=== PATIENT | male | born 2000 | race Caucasian/White ===

== ENCOUNTER 2023-06-01 16:17 | Emergency (ER) | payer OTHER, SELFPAY ==
[2023-06-01 16:40] VITALS: BP 147/89; PULSE 73; RESP 18; TEMP 36.8; O2SAT 99; BMI 36.3
--- NOTE | 2023-06-01 17:13 | EXP.UTC ---
Discharge Plan Disposition Patient Disposition: Home, Self-Care Condition: Good Prescriptions Prescriptions: New fluticasone propionate [Flonase Allergy Relief] 50 mcg/actuation spray,suspension 1 - 2 spray intranasal DAILY Qty: 16 0RF Rx Instructions: administer into each nostril amoxicillin 875 mg tablet 875 mg PO BID Qty: 20 0RF Referrals Follow up/Referrals: Provider,Referral, MD [Primary Care Provider] - See instructions Activity Restrictions/Add. Instructions Additional Instructions/Restrictions: Take medication as prescribed Use flonase as prescribed to help with drainage Follow up with your Family Doctor if no improvement or any worsening of symptoms Return if needed Clinical Impressions Clinical Impression: Otitis media Qualifiers: Otitis media type: unspecified Laterality: bilateral Qualified Code(s): H66.93 - Otitis media, unspecified, bilateral Instructions Patient Instructions: Middle Ear Infection Discharge ED Provider: Melony Aparicio [facility] [place] General Stated complaint: ear pain Mode of Arrival: Ambulatory Source of Information: Patient Limitations: No Limitations Time Seen by Provider: 06/01/23 17:13 Description of Symptoms (Recalled from Triage Doc. by RN): PATIENT C/O RIGHT EAR PAIN X 2 DAYS HEENT Symptoms (Recalled from RN notes): Yes Resp Symptoms (Recalled from RN notes): No Skin Symptoms (Recalled from RN notes): No MS Symptoms (Recalled from RN notes): No Functional Status (Recalled from RN notes): WNL History of Present Illness Provider Complaint: Patient states that he has been having pain in his right ear with feeling of fullness and echoing States that today it was hurting worse so he came in to get checked Related Data Previous Rx's Medication Instructions Recorded amoxicillin 875 mg tablet 875 mg PO BID #20 tabs 06/01/23 fluticasone propionate 50 1 - 2 spray intranasal DAILY #16 06/01/23 mcg/actuation nasal grams spray,suspension (Flonase Allergy Relief) Allergies Allergy/AdvReac Type Severity Reaction Status Date / Time No Known Allergies Allergy Verified 06/01/23 16:53 Worker's Comp Is this a Worker's Comp case?: No [facility] Disclaimer: The information contained in this section may have been updated after the patient was seen, as this information can be updated by other users. Social History Smoking Status: Never smoker alcohol intake: never current occupational status: employed Travel in the last 8 weeks: None ROS Obtained: Yes All systems reviewed & no additional complaints except as documented and Yes Systems reviewed as appropriate & no additional complaints except as documented Constitutional Constitutional: Reports system reviewed and no additional complaints, except as documented and Reports as per HPI ENT Ears, Nose, Mouth, and Throat: Reports system reviewed and no additional complaints, except as documented, Reports as per HPI and Reports otalgia Cardiovascular Cardiovascular: Reports system reviewed and no additional complaints, except as documented and Reports as per HPI Respiratory Respiratory: Reports system reviewed and no additional complaints, except as documented and Reports as per HPI Gastrointestinal Gastrointestingal: Reports system reviewed and no additional complaints, except as documented and as per HPI Physical Exam General General appearance: alert and in no apparent distress Expanded ENT Exam TM/Canal exam: Bilateral TM: erythema and bulging Nose exam: Absent sinus tenderness Throat exam: Present normal inspection Respiratory Respiratory exam: Present normal lung sounds bilaterally; Absent respiratory distress or wheezes Cardiovascular Cardiovascular exam: Present regular rate, normal rhythm and normal heart sounds Abdominal Exam Abdominal exam: Present soft and normal bowel sounds; Absent distention or tenderness Neurological Exam Neurological exam: Present alert, oriented X3 and normal gait
[2023-06-01 17:24] VITALS: BP 147/89; PULSE 73; RESP 18; TEMP 36.8; O2SAT 99
== END 2023-06-01 17:26 | disposition home or self-care (01) ==
PROVIDERS: Emergency Provider Nurse Practitioner
DX: H66.93 Otitis media, unspecified, bilateral (principal)
CPT/HCPCS: 99204; 99212; G0463

== ENCOUNTER 2024-02-08 17:12 | Emergency (ER) | payer OTHER, SELFPAY ==
[2024-02-08 17:20] VITALS: BP 167/91; PULSE 80; RESP 18; TEMP 36.6; O2SAT 98; BMI 38.0
--- NOTE | 2024-02-08 17:39 | ED_ITS ---
Discharge Plan Disposition Patient Disposition: Home, Self-Care Condition: Good Prescriptions Prescriptions: New amoxicillin 875 mg tablet 875 mg PO Q12H Qty: 20 0RF methylprednisolone [Medrol (Sheng)] 4 mg tablets,dose pack See Rx Instructions .Route .COMPLEX 6 Days Qty: 21 0RF Rx Instructions: taper pack; fluticasone propionate [Flonase Allergy Relief] 50 mcg/actuation spray,maxx pension 2 spray intranasal DAILY Qty: 16 0RF Rx Instructions: administer into each nostril daily Referrals Follow up/Referrals: Provider,Referral, MD [Primary Care Provider] - See instructions Activity Restrictions/Add. Instructions Additional Instructions/Restrictions: Take medication as prescribed Use flonase daily as prescribed Follow up with your Family Doctor if no improvement or any worsening of symptoms Straight to ER if any life threatening symptoms Clinical Impressions Clinical Impression: Otitis media Instructions Patient Instructions: DI for Ear Pain-Adult Discharge ED Provider: Melony Aparicio [facility] [place] HPI General Stated complaint: Bilateral earache Mode of Arrival: Ambulatory Source of Information: Patient Limitations: No Limitations Time Seen by Provider: 02/08/24 17:39 Description of Symptoms (Recalled from Triage Doc. by RN): Pt has bilateral ear pain. HEENT Symptoms (Recalled from RN notes): Yes Resp Symptoms (Recalled from RN notes): No Skin Symptoms (Recalled from RN notes): No MS Symptoms (Recalled from RN notes): No Functional Status (Recalled from RN notes): n/a History of Present Illness Provider Complaint: Patient states that he has been having bilateral ear pain and pressure States that he is having pain and fullness in both ears that has continued to get worse so he came in to get checked Related Data Previous Rx's Medication Instructions Recorded amoxicillin 875 mg tablet 875 mg PO Q12H #20 tabs 02/08/24 fluticasone propionate 50 2 spray intranasal DAILY #16 grams 02/08/24 mcg/actuation nasal spray,suspension (Flonase Allergy Relief) methylprednisolone 4 mg tablets in See Rx Instructions .Route 02/08/24 a dose pack (Medrol (Sheng)) .COMPLEX 6 days #21 tabs Allergies Allergy/AdvReac Type Severity Reaction Status Date / Time No Known Allergies Allergy Verified 02/08/24 17:37 Worker's Comp Is this a Worker's Comp case?: No [facility] Disclaimer: The information contained in this section may have been updated after the patient was seen, as this information can be updated by other users. Social History Smoking Status: Never smoker alcohol intake: never current occupational status: employed Travel in the last 8 weeks: None ROS Obtained: Yes All systems reviewed & no additional complaints except as documented and Yes Systems reviewed as appropriate & no additional complaints except as documented Constitutional Constitutional: Reports system reviewed and no additional complaints, except as documented and Reports as per HPI ENT Ears, Nose, Mouth, and Throat: Reports system reviewed and no additional complaints, except as documented, Reports as per HPI and Reports otalgia Cardiovascular Cardiovascular: Reports system reviewed and no additional complaints, except as documented and Reports as per HPI Respiratory Respiratory: Reports system reviewed and no additional complaints, except as documented and Reports as per HPI Gastrointestinal Gastrointestingal: Reports system reviewed and no additional complaints, except as documented and as per HPI Physical Exam General General appearance: alert and in no apparent distress ENT ENT exam: Present mucous membranes moist Expanded ENT Exam TM/Canal exam: Left TM: erythema and Bilateral TM: bulging Respiratory Respiratory exam: Present normal lung sounds bilaterally; Absent respiratory distress or wheezes Cardiovascular Cardiovascular exam: Present regular rate, normal rhythm and normal heart sounds Abdominal Exam Abdominal exam: Present soft and normal bowel sounds; Absent distention or tenderness Neurological Exam Neurological exam: Present alert, oriented X3 and normal gait Medical Decision Making Avtar Inquiry Pt receiving controlled substance: No Avtar was queried for this patient: No Vital Signs: 02/08/24 17:20 Temperature 97.9 F Temperature Source Oral Pulse Rate [Right Radial] 80 Respiratory Rate 18 Blood Pressure [Right Arm] 167/91 H Blood Pressure Mean [Right Arm] 116 Blood Pressure Source [Right Arm] Automatic Cuff Blood Pressure Position [Right Arm] Sitting 02 Sat by Pulse Oximetry 98 Oxygen Delivery Method Room Air
[2024-02-08 18:04] VITALS: BP 167/91; PULSE 80; RESP 18; TEMP 36.6; O2SAT 98
== END 2024-02-08 18:04 | disposition home or self-care (01) ==
PROVIDERS: Emergency Provider Nurse Practitioner
DX: H66.93 Otitis media, unspecified, bilateral (principal)
CPT/HCPCS: 99212; 99214; G0463

== ENCOUNTER 2024-10-03 12:32 | Emergency (ER) | payer OTHER, SELFPAY ==
[2024-10-03 13:20] VITALS: BP 141/98; PULSE 72; RESP 19; TEMP 36.7; O2SAT 100; BMI 33.5
--- NOTE | 2024-10-03 13:29 | ED_ITS ---
Discharge Plan Disposition Patient Disposition: Home, Self-Care Condition: Good Prescriptions Prescriptions: New amoxicillin 875 mg tablet 875 mg PO Q12H Qty: 20 0RF fluticasone propionate [Flonase Allergy Relief] 50 mcg/actuation spray,suspension 1 - 2 spray intranasal DAILY Qty: 16 0RF Rx Instructions: administer into each nostril daily methylprednisolone [Medrol (Shegn)] 4 mg tablets,dose pack See Rx Instructions .Route .COMPLEX 6 Days Qty: 21 0RF Rx Instructions: taper pack; Referrals Follow up/Referrals: Provider,Referral, MD [Primary Care Provider] - See instructions Activity Restrictions/Add. Instructions Additional Instructions/Restrictions: Take medication as prescribed Use flonase as prescribed Follow up with your Family Doctor if needed Clinical Impressions Clinical Impression: Otitis media Qualifiers: Otitis media type: unspecified Laterality: left Qualified Code(s): H66.92 - Otitis media, unspecified, left ear Stand Alone Forms Stand Alone Forms: Work/School Release Instructions Patient Instructions: Middle Ear Infection, Amoxicillin Print Language Print Language: Hungarian Discharge ED Provider: Melony Aparicio [facility] General Stated complaint: L ear pain Mode of Arrival: Ambulatory Source of Information: Patient Limitations: No Limitations Time Seen by Provider: 10/03/24 13:29 Description of Symptoms (Recalled from Triage Doc. by RN): PATIENT C/O FULLNESS TO LEFT EAR SINCE YESTERDAY HEENT Symptoms (Recalled from RN notes): Yes Resp Symptoms (Recalled from RN notes): No Skin Symptoms (Recalled from RN notes): No MS Symptoms (Recalled from RN notes): No Functional Status (Recalled from RN notes): WNL History of Present Illness Provider Complaint: patient states that he has been having pain and fullness in his left ear worse since yesterday States that he wasnt sure if it was infected or stopped up Related Data Previous Rx's ?Medication ?Instructions ?Recorded amoxicillin 875 mg tablet 875 mg PO Q12H #20 tabs 10/03/24 fluticasone propionate 50 1 - 2 spray intranasal DAILY #16 10/03/24 mcg/actuation nasal grams spray,suspension (Flonase Allergy Relief) methylprednisolone 4 mg tablets in See Rx Instructions .Route 10/03/24 a dose pack (Medrol (Sheng)) .COMPLEX 6 days #21 tabs Allergies Allergy/AdvReac Type Severity Reaction Status Date / Time No Known Allergies Allergy Verified 02/08/24 17:37 Worker's Comp Is this a Worker's Comp case?: No [facility] Disclaimer: The information contained in this section may have been updated after the patient was seen, as this information can be updated by other users. Medical History (Updated 10/03/24 @ 13:41 by Melony Aparicio APRN) No significant past medical history Social History Smoking Status: Never smoker alcohol intake: never current occupational status: employed Travel in the last 8 weeks: None Have you lived/traveled outside [place] in past 30 days?: No Contact w/someone who lives/traveled outside [place] past 30 days?: No Exposure to someone with infectious disease in past 14 days?: No Do you have a fever (greater than 100.4 F or 38 C)?: No Have you tested positive for COVID-19: No Exposed to someone with COVID-19 in past 14 days?: No Do you have a sore throat?: No Do you have a cough?: No Do you have any weakness?: No Do you have any diarrhea?: No Are you experiencing any unusual bleeding?: No Do you have any muscle aches/pain?: No Do you have any abdominal pain?: No Are you experiencing loss of taste or smell?: No ROS Obtained: Yes All systems reviewed & no additional complaints except as documented and Yes Systems reviewed as appropriate & no additional complaints except as documented Constitutional Constitutional: Reports system reviewed and no additional complaints, except as documented and Reports as per HPI ENT Ears, Nose, Mouth, and Throat: Reports system reviewed and no additional complaints, except as documented, Reports as per HPI and Reports otalgia Cardiovascular Cardiovascular: Reports system reviewed and no additional complaints, except as documented and Reports as per HPI Respiratory Respiratory: Reports system reviewed and no additional complaints, except as documented and Reports as per HPI Gastrointestinal Gastrointestingal: Reports system reviewed and no additional complaints, except as documented and as per HPI Physical Exam General General appearance: alert and in no apparent distress ENT ENT exam: Present mucous membranes moist Expanded ENT Exam TM/Canal exam: Left TM: erythema and Bilateral TM: bulging Nose exam: Absent sinus tenderness Respiratory Respiratory exam: Present normal lung sounds bilaterally; Absent respiratory distress or wheezes Cardiovascular Cardiovascular exam: Present regular rate, normal rhythm and normal heart sounds Abdominal Exam Abdominal exam: Present soft and normal bowel sounds; Absent distention or tenderness Neurological Exam Neurological exam: Present alert, oriented X3 and normal gait Medical Decision Making Medical Records Screening: Per USPSTF and CDC recommendations, given the prevalence of disease in our region, it is our hospital?s policy to screen for HIV and viral Hepatitis for all patients aged 18 and over and those with ongoing risk factors. Avtar Inquiry Pt receiving controlled substance: No Avtar was queried for this patient: No Vital Signs: 10/03/24 13:20 Temperature 98.1 F Temperature Source Oral Pulse Rate [Left Brachial] 72 Respiratory Rate 19 Blood Pressure [Left Arm] 141/98 H Blood Pressure Mean [Left Arm] 112 Blood Pressure Source [Left Arm] Automatic Cuff Blood Pressure Position [Left Arm] Sitting 02 Sat by Pulse Oximetry 100 Oxygen Delivery Method Room Air
[2024-10-03 13:47] VITALS: BP 141/98; PULSE 72; RESP 19; TEMP 36.7; O2SAT 100
== END 2024-10-03 13:49 | disposition home or self-care (01) ==
PROVIDERS: Emergency Provider Nurse Practitioner
DX: H66.92 Otitis media, unspecified, left ear (principal); H92.02 Otalgia, left ear
CPT/HCPCS: 99212; G0381

== ENCOUNTER 2024-11-24 07:04 | Outpatient (CLI) | payer OTHER, BC, SELFPAY ==
[2024-11-24 07:37] LABS: Basophils # 0.1 K/mm3 (0-0.2); Basophils % 0.7 % (0.1-2.0); Eosinophils # 0.3 K/mm3 (0.0-0.4); Eosinophils % 4.5 % (0.1-12.0); Hemoglobin 15.5 g/dL (14.1-18.0); Lymphocytes # 2.3 K/mm3 (0.7-4.5); Lymphocytes % 33.8 % (10-50); Mean Corpuscular HGB Conc 33.7 g/dL (31.8-35.4); Mean Corpuscular Hemoglobin 28.1 pg (27.0-31.2); Mean Corpuscular Volume 83.3 fl (80-94); Mean Platelet Volume 8.5 fl (7.4-10.4); Monocytes # 0.7 K/mm3 (0.1-1.0); Monocytes % 10.3 % (1.7-9.3); Neutrophils # 3.5 K/mm3 (1.8-7.8); Neutrophils % 50.4 % (37.0-80.0); Platelet Count 253 K/mm3 (142-424); Red Blood Count 5.52 M/mm3 (4.60-6.20); Red Cell Distribution Width 12.5 % (11.5-17.5); White Blood Count 6.9 K/mm3 (4.8-10.8)
[2024-11-24 08:04] LABS: Alanine Aminotransferase 45 U/L (12-78); Albumin Level 4.7 g/dl (3.5-5.0); Albumin/Globulin Ratio 2.6 (1.1-1.8); Alkaline Phosphatase 84 U/L (38-126); Anion Gap 17.4 mEq/L (5-15); Aspartate Amino Transferase 31 U/L (17-59); Bilirubin,Total 0.4 mg/dl (0.2-1.3); Blood Urea Nitrogen 14 mg/dl (9-20); Calcium 9.7 mg/dl (8.4-10.2); Carbon Dioxide 26 mmol/L (22.0-30.0); Chloride 102 mmol/L (98-107); Chol/HDL Ratio 2.8 (1-3.5); Cholesterol 134 mg/dl (140-200); Estimated Glomerular Filt Rate 102 ml/min (>60); GFR (African American) 123 ML/MIN (>60); Globulin 1.8 g/dL (1.3-3.2); Glucose 99 mg/dl (74-100); HDL Cholesterol 48 mg/dl (40-60); Potassium 4.4 mmoL/L (3.5-5.1); Sodium 141 mmol/L (136-145); Total Protein,Serum 6.5 g/dl (6.3-8.2); Triglycerides 73 mg/dl (30-150); VLDL Cholesterol 15 mg/dL (0-40)
[2024-11-24 08:10] LABS: Hemoglobin A1C 5.2 % (4.0-6.0)
[2024-11-24 08:15] LABS: Direct LDL Cholesterol 58.69 mg/dL (100-129)
== END 2024-11-24 23:59 | disposition home or self-care (01) ==
LOC: LAB 07:06
PROVIDERS: PCP Internal Medicine; Visit Provider Internal Medicine
DX: Z00.00 Encounter for general adult medical examination without abnormal findings (principal); Z13.220 Encounter for screening for lipoid disorders; Z13.1 Encounter for screening for diabetes mellitus
CPT/HCPCS: 36415; 80053; 80061; 83036; 85025

== ENCOUNTER 2024-12-09 15:58 | Outpatient (RCR) | payer BC, SELFPAY ==
--- NOTE | 2024-12-09 16:36 | HMH.PTOPEV ---
PT Outpatient Evaluation Rehab PT Outpatient Evaluation Start: 12/09/24 16:28 Freq: Status: Active Protocol: Document 12/09/24 16:28 HODA (Rec: 12/09/24 16:36 HODA [id number]) E-signed By Carl Rain, PT Outpatient Therapy Subjective History Subjective History The pt is a 24 yom who is referred to [facility] outpatient for R hip and leg pain. The pt reports that he is mostly pain -free but about once every 2-3 weeks, he will have a pain in his hip that begins from sitting on a hard surface. He reports the pain will linger throughout the day but then go away after he sleeps. He reports no functional limitations with the pain. Pt is unsure if he needs therapy at this time. Occupation: Supervisor Loading PMH: none Chief Complaint Pain Symptom Type Shooting Symptoms Relieved By Rest/Positioning Symptoms Aggravated By Bending/Stooping Prior Functional Limitations None Current Functional Limitations None Symptom Description Intermittent Level of pain today (0-10) 0 Pain scale - at its best (0-10) 0 Pain scale - at its worst (0-10) 6 Lumbopelvic Eval Posture Thoracic Spine Posture Standing Position Neutral Lumbar Spine Posture Standing Position Neutral Assistive device Assistive Devices None / NA Gait Observation General Gait Pattern Observation No Deviations/Normal Palapation tenderness bilateral lumbar spinal tenderness Yes: 0/4 paraspinal tenderness Yes: 0/4 Range of Motion Lumbar Spine Active Flexion Range of 100% Motion (degrees) Lumbar Spine Active Extension Range of 100% Motion (degrees) Left Lumbar Spine Lateral Flexion Active 100% Range of Motion (degrees) Right Lumbar Spine Lateral Flexion 100% Active Range of Motion (degrees) Manual Muscle Test Bilateral Knee Extension Strength Grade 5 Normal Knee Flexion Strength Grade 5 Normal Hip Flexion Strength Grade 5 Normal Hip Abduction Strength Grade 5 Normal Hip Adduction Strength Grade 5 Normal Hip Extension Strength Grade 5 Normal Ankle Dorsiflexion Strength Grade 5 Normal DTR Rt Patellar 2+ Lt Patellar 2+ Rt Gastroc/Soleus 2+ Lt Gastroc/Soleus 2+ Lower Extremity Functional Index Activities Today, do you or would you have any difficulty at all with: a.Any of your usual work, housework or No difficulty school activities b. Your usual hobbies, recreational or No difficulty sporting activities c. Getting into or out of the bath No difficulty d. Walking between rooms No difficulty e. Putting on your shoes or socks No difficulty f. Squatting No difficulty g. Lifting an object, like a bag of No difficulty groceries from the floor h. Performing light activities around No difficulty your home i. Performing heavy activities around No difficulty your home j. Getting into or out of a car No difficulty k. Walking 2 blocks No difficulty l. Walking a mile No difficulty m. Going up or down 10 stairs (about 1 No difficulty flight of stairs) n. Standing for 1 hour No difficulty o. Sitting for 1 hour No difficulty p. Running on even ground No difficulty q. Running on uneven ground No difficulty r. Making sharp turns while running fast No difficulty s. Hopping No difficulty t. Rolling over in bed No difficulty LEFI Score Lower Extremity Functional Index Score 80 Outpatient Therapy Assessment Prognosis Rehab Potential Innapropriate for Skilled Therapy Comment Pt presents to clinic with no pain and unable to recreate patient's comparable sign. Pt demonstrates no apparent impairments or functional limitations. Pt issued sciatic N glide exercises, hamstring and piri stretch for when pain flares up. Skilled PT is not indicated at this time. Pt instructed that if pain worsens or if he begins to have more difficulty with daily activities to contact his dr and get another referral. Outpatient Therapy Plan of Care Frequency Times per week 1 Duration Number of Weeks 1 Addendums This patient is a candidate for social No or vocational rehab? Patient/Guardian verbally acknowledges Yes understanding of treatment program and consents to further treatment? Patient/Guardian verbally acknowledges Yes understanding of diagnosis, prognosis and goals for treatment? Eval Complexity PT Charges 42418 - Low Complexity Shoulder/Elbow Eval Shoulder Objective Measurements Elbow Objective Measurements PHYSICIAN CERTIFICATION: I certify the specified therapy services for Bobby Ramirez are required, authorized, and reviewed every 30 days.
== END 2024-12-09 23:59 | disposition home or self-care (01) ==
LOC: PT 15:58
PROVIDERS: PCP Internal Medicine; Visit Provider Internal Medicine
DX: M79.604 Pain in right leg (principal); M25.551 Pain in right hip
CPT/HCPCS: 97163